=== PATIENT | female | born 1960 | race Caucasian/White ===

== ENCOUNTER 2022-02-09 15:10 | Outpatient (CLI) | payer MEDICARE, MEDICAID, SELFPAY ==
[2022-02-09 16:41] LABS: Absolute Lymphocyte Count 1.47 X10^3/uL (0.83-4.51); Absolute Neutrophil Count 2.5 X10^3/uL (2.0-7.7); Basophil# 0.04 X10^3/uL; Basophil% 0.9 % (0-1); Eosinophil# 0.11 X10^3/uL; Eosinophils% 2.4 % (0-5); Hematocrit 39.4 % (37-47); Hemoglobin 12.3 g/dL (12.0-15.0); Lymphocyte # 1.47 X10^3/ul (0.83-4.51); Mean Corp Hgb Conc 31.2 g/dL (32-36); Mean Corpuscular Hgb 24.8 pg (27.0-32.0); Mean Corpuscular Volume 79.6 fL (81-99); Mean Platelet Vol. 11.6 fl (6.2-12.0); Monocyte# 0.46 X10^3/uL; NRBC Flagged by Analyzer 0 % (0-5); Neutrophil # 2.51 X10^3/uL (2.7-7.7); Neutrophil % 54.5 % (47-70); Platelet Count 233 K/mm3 (150-450); RBC Distribution Width CV 16.6 % (11.6-14.6); RBC Distribution Width SD 47.6 fl (35.1-43.9); Red Blood Count 4.95 M/mm3 (4.2-5.4); White Blood Count 4.6 K/mm3 (4.4-11.0)
[2022-02-09 16:57] LABS: AST(SGOT) 20 U/L (15-37); Alanine Aminotransfer ALT/SGPT 36 U/L (13-56); Albumin, Serum 3.8 g/dL (3.2-5.0); Alkaline Phosphatase 96 U/L (45-117); Anion Gap 6 (5-15); BUN 21 mg/dL (7-18); BUN/Creat Ratio 22.5 RATIO (10-20); Calcium,Total 9.7 mg/dL (8.5-10.1); Chloride 104 mmol/L (98-107); Cholesterol 266 mg/dL (200); Creatinine, Serum 0.93 mg/dL (0.55-1.02); EST Glomerular Filtration Rate 65 mL/min (>60); Est Glom Filt Rate - Afr Amer 79 mL/min (>60); Globulin 3.7 g/dL (2.2-4.2); Glucose 96 mg/dL (74-106); High Density Lipoprotein 50 mg/dL; Potassium 3.7 mmol/L (3.5-5.1); Protein, Total 7.5 g/dL (6.4-8.2); Sodium Level 139 mmol/L (136-145); Triglycerides 212 mg/dL; Very Low Density Lipoprotein 42 mg/dL (5-40)
== END 2022-02-09 23:59 | disposition home or self-care (01) ==
LOC: BIMLAB 15:13
PROVIDERS: PCP Internal Medicine; Referring Provider Internal Medicine; Visit Provider Internal Medicine
DX: I10 Essential (primary) hypertension (principal); F41.9 Anxiety disorder, unspecified; F32.A Depression, unspecified
CPT/HCPCS: 36415; 80053; 80061; 84443; 85025

== ENCOUNTER 2023-02-14 10:16 | Outpatient (RCR) | payer MEDICARE, MEDICAID, SELFPAY ==
[2023-02-14 10:36] VITALS: BP 151/102; PULSE 101; TEMP 35.8; BMI 37.4
--- NOTE | 2023-02-14 12:23 | PCM.WC.HP ---
History of Present Illness Date of Service: 02/14/23 Chief Complaint: Nonhealing ulceration left lateral leg History of Wound: Patient is a 62-year-old female with PMHx of IBS, hypothyroidism, chronic back pain secondary to DJD, and nonhealing ulceration to the left lateral lower extremity. She states that the wound occurred after falling and bumping a heater. States that the wound did decrease in size but then increased significantly. She does admit to following in the wound care center in [place] with the [facility] where she underwent debridement and was placed into compression stockings which she does not wear consistently. She admits to the wound waxing and waning in size but recently has become more hypertrophic. Treating physician Dung Kumar MD felt with lack of progress over the 1 year duration of treatment that she likely has pyoderma gangrenosum. She was started on oral steroid therapy at 20 mg daily. This was increased to 40 mg daily then ultimately 60 mg daily. She states that she finished treatment and was supposed to continue with the oral steroid however she did not take it and has not taken any in 2 months. She also at that time was noticed to have some redness about the ulcerative site and the leg and was started on clindamycin 300 mg to treat associated cellulitis. She reports she is started the medication 2 days ago. She was prescribed Santyl for debridement and continues to use this, however is likely not using enough as she is generous with application due to cost. She presents to the wound care center here today due to lack of progress. [facility] Medical History (Updated 02/14/23 @ 13:[address] Leo Tai, DPRene) Anxiety and depression Broken leg Chronic respiratory failure Debility Degenerative disc disease Depression Empyema Endometriosis Gout High cholesterol Hx of blood clots Hypertension Hypothyroidism Migraine Pneumonia due to COVID-19 virus Pulmonary embolism Recurrent pulmonary embolism Shingles Home Medications acetaminophen 500 mg tablet (Tylenol Extra Strength) 500 mg PO Q6H PRN 10/31/21 [History Last Taken Unknown] TENS unit and electrodes combo pack #1 ea 01/23/22 [Rx Last Taken Unknown] apixaban 5 mg tablet (Eliquis) 5 mg PO BID #60 tabs 01/23/22 [Rx Last Taken Unknown] fluticasone propionate 50 mcg/actuation nasal spray,suspension (Flonase Allergy Relief) 1 spray intranasal DAILY #16 grams 01/23/22 [Rx Last Taken Unknown] handicap placard See Rx Instructions .Route .COMPLEX #1 unit 01/23/22 [Rx Last Taken Unknown] omeprazole 40 mg capsule,delayed release 40 mg PO DAILY #90 caps 08/03/22 [Rx Last Taken Unknown] bupropion HCl 300 mg 24 hr tablet, extended release 300 mg PO QAM #90 tabs 09/13/22 [Rx Last Taken Unknown] atenolol 50 mg tablet 50 mg PO DAILY #90 tabs 10/26/22 [Rx Last Taken Unknown] fluoxetine 40 mg capsule (Prozac) 40 mg PO DAILY #90 caps 10/26/22 [Rx Last Taken Unknown] levothyroxine 200 mcg tablet 200 mcg PO DAILY #90 tabs 10/26/22 [Rx Last Taken Unknown] triamterene 75 mg-hydrochlorothiazide 50 mg tablet 1 tab PO DAILY #90 tabs 10/26/22 [Rx Last Taken Unknown] albuterol sulfate 90 mcg/actuation aerosol inhaler (ProAir HFA) 2 puff inhalation Q6H PRN shortness of breath or wheezing #8.5 grams 01/23/23 [Rx Last Taken Unknown] cyclobenzaprine 10 mg tablet See Rx Instructions .Route .COMPLEX #30 tabs 01/23/23 [Rx Last Taken Unknown] furosemide 20 mg tablet (Lasix) 20 mg PO DAILY #30 tabs 01/23/23 [Rx Last Taken Unknown] simvastatin 40 mg tablet 40 mg PO DAILY #90 tabs 01/23/23 [Rx Last Taken Unknown] gabapentin 400 mg capsule 400 mg PO TID #90 caps 01/29/23 [Rx Last Taken Unknown] Allergy/AdvReac Type Severity Reaction Status Date / Time cephalexin [From Keflex] Allergy Mild swelling Verified 02/09/22 14:33 diclofenac Allergy Mild cough Verified 02/09/22 14:33 Tetracyclines Allergy Mild vomiting Verified 02/09/22 14:33 meloxicam Allergy Other Verified 02/14/23 10:34 lisinopril AdvReac Other Verified 02/14/23 10:32 Family History (Updated 10/31/21 @ 16:27 by Maliha Feliz) Mother Hypertension Diabetes Asthma Father CVA (cerebral vascular accident) Diabetes Heart disease Surgical History (Updated 10/31/21 @ 16:24 by Maliha Feliz) H/O laparoscopy History of lung surgery Social History Smoking Status: Former smoker quit date: 11/18/09 alcohol intake: current alcohol intake frequency: holidays/special occasions only substance use type: does not use what type of physical activity do you participate in: none do you feel safe at home: Yes ROS Constitutional Constitutional: Denies chills, fatigue or fever(s) Eyes Eyes: Denies blurry vision, change in vision or double vision ENT HEENT: Denies nasal congestion, nasal discharge or sore throat Cardiovascular Cardiovascular: Denies chest pain, claudication or palpitations Respiratory/Chest Respiratory/Chest: Denies cough or shortness of breath at rest Gastrointestinal Gastrointestinal: Denies abdominal pain, constipation, diarrhea, nausea or vomiting Genitourinary Genitourinary: Denies dysuria, urinary frequency, urinary hesitancy, urinary incontinence or urinary urgency Musculoskeletal Musculoskeletal: Reports back pain and extremity pain; Denies joint pain, joint stiffness or joint swelling Integumentary Integumentary: Denies pruritus or rash Psychiatric Psychiatric: Reports anxiety and depression Endocrine Endocrinology: Denies polydipsia or polyuria Hematologic/Lymphatic Hematologic/Lymphatic: Denies easy bleeding or easy bruising Vital Signs Vital Signs Vital Signs: 02/14/23 10:36 Temperature 96.5 F L Temperature Source Temporal Pulse Rate 101 H Blood Pressure 151/102 H Blood Pressure Mean 118 Blood Pressure Source Monitor Weight Weight: 102.058 kg Body Mass Index (BMI) 37.4 Physical Exam Const alert, no apparent distress and well nourished General Appearance: cooperative HEENT normocephalic Eyes General Eye: normal appearance of both eyes Neck General: normal visual inspection Lymph Lymphatic: no lymphadenopathy noted and no lymphedema noted Resp normal respiratory effort Cardio regular rate and regular rhythm Extremity normal capillary refill and no calf tenderness Extremity Narrative: DP and PT pulses palpable with adequate capillary fill time to the digits. Normal temperature gradient. Dermatologic: Localized cellulitis about the ulcerative rim extending to the anterior tibia Musculoskeletal: Decreased range of motion of the ankle joint noted in dorsiflexion with the knee extended without pain or crepitus. Decreased first MTPJ range of motion without pain or crepitus. Muscle strength is 5 of 5 and age-appropriate. Pain to palpation of the lower extremity secondary to ulceration and cellulitis. Skin no rashes or lesions noted, skin turgor normal and no jaundice Wound Narrative: Ulceration to the anterior lateral left lower extremity with mixed hypergranular tissue and yellow fibrotic tissue throughout the wound bed with irregular margins. There is some localized cellulitis of the Left lower extremity. No purulent drainage, no malodor, no palpable fluctuance/bogginess noted, no visible abscess formation, no lymphangitic streaking. Neuro moves all extremities Debridement Note Debridement Note No debridement was completed: No debridement was completed today Post-Debridement Measurements and Additional Note: Post-Debridement Measurements/Treatment - Nurse 1 - General Ulcer Assessment Start: 02/14/23 10:31 Freq: Status: Active Protocol: BRITTANI Activity Type Activity Date Activity User E-sign Co-sign Detail Recorded Client Recorded Date Recorded By Document 02/14/23 10:36 JOON [id number] 02/14/23 10:42 JOON 02/14/23 10:36 - Today's Visit Information Type of service Initial Visit Arrival Mode Ambulatory Patient Identification Verified (Name & Yes ) Patient Requires Transmission-Based No Precautions Height and Weight Height 5 ft 5 in Weight 102.058 kg Weight in Pounds 225.0 lbs Body Mass Index (BMI) 37.4 BMI Classification Obese BSA - Jake 2.08 Vital Signs Temperature (97.8 F-99.1 F) 96.5 F L Temperature Source Temporal Pulse Rate (60-100) 101 H Pulse Location Monitor Blood Pressure (90/60-120/80) 151/102 H Blood Pressure Mean 118 Source Monitor History Since Last Visit- (Skip if this is Patient's initial visit) Left Footwear Regular Shoe Right Footwear Regular Shoe Pain Scale: 0-10 Numeric Is Patient Pain Free? Yes - Nurse 1 - General Ulcer Measurement Start: 02/14/23 10:31 Freq: Status: Active Protocol: Activity Type Activity Date Activity User E-sign Co-sign Detail Recorded Client Recorded Date Recorded By Document 02/14/23 10:36 JOON [id number] 02/14/23 10:42 JOON 02/14/23 10:36 Wound Center Nurse 1 1-left lateral leg -Current Size (cm) - Length 5.6 -Current Size (cm) - Width 3.8 -Current Size (cm) - Depth 0.1 -Total Square Cm 21.28 -Photo Taken Yes -Epithelialization Medium 34-66% -Tunneling No -Undermining/Tunneling No -Circular Undermining No -Classification - Thickness Full Thickness without Exposed Support Structure -Wound Margin Flat & Intact -Granulation Amt Large (67-100%) -Granulation Quality Red -Slough/Fibrin Yes -Necrosis Amt Small (1-33%) -Necrotic Tissue Type Adherent Slough -Structure Exposed N/A -Texture (Carolann-wound Skin Appearance) Assessed, Localized Edema -Moisture (Carolann-wound Skin Appearance) Assessed,Dry/ Scaly -Color (Carolann-wound Skin Appearance) Assessed -Temperature (Carolann-wound Skin No Abnormality Appearance) (Pt Warm) -Tenderness on Palpation (Carolann-wound No Skin Appearance) -Ulcer Cleansing Wound Cleanser -Foul Odor after Cleansing No -Anesthetic Used 5% Lidocaine Gel Lower Limb Edema Present Yes Right Calf (cm) 39.8 Right Ankle (cm) 23.6 Left Calf (cm) 42.6 Left Ankle (cm) 26.0 Assessment/Plan Assessment/Plan (1) Debility: CODE(S): R53.81 - Other malaise (2) Hypertension: CODE(S): I10 - Essential (primary) hypertension QUALIFIERS: Hypertension type: primary hypertension Qualified Code(s): I10 - Essential (primary) hypertension (3) Hypothyroidism: CODE(S): E03.9 - Hypothyroidism, unspecified (4) Non-pressure chronic ulcer of left calf with fat layer exposed: CODE(S): L97.222 - Non-pressure chronic ulcer of left calf with fat layer exposed (5) Pyoderma gangrenosum: CODE(S): L88 - Pyoderma gangrenosum (6) Venous insufficiency (chronic) (peripheral): CODE(S): I87.2 - Venous insufficiency (chronic) (peripheral) PLAN: Plan Patient seen and evaluated I reviewed her current case and medical history from [facility] with the wound care center. She had undergone treatment for nonhealing ulceration for the duration of a year with minimal progress. Recently diagnosed with pyoderma gangrenosum and placed on oral steroids. Does have history of IBS. She was started 20 mg daily and titrated up to 60 mg daily. She did complete this course however has not taken any recent steroids despite being instructed to continue the treatment. She has been applying Santyl daily to the wound site but has been using a very minimal amount. She has not been consistent with wearing compression stockings. I encouraged continued compression stockings daily. Instructed on proper use of Santyl with wet-to-dry dressing daily. I discussed that this will provide nontraumatic ulcer debriding. I advised against debridement today due to pyoderma gangrenosum and likely worsening of her condition. Instructed her to resume steroid treatment at 20 mg daily until she establishes with dermatology for continued management of her pyoderma gangrenosum of the left lower extremity. Dry sterile dressing was applied today. Tubigrip compression applied today. She was instructed to continue to elevate legs at all times of rest to aid in edema control. Discussed referral to dermatology for continued care of this lower extremity ulceration complicated by pyoderma gangrenosum. She may return to the wound care center as needed. She may call with any questions or concerns or return sooner should any problems arise.
== END 2023-02-15 23:59 | disposition home or self-care (01) ==
LOC: WC 10:16
PROVIDERS: PCP Internal Medicine; Visit Provider Student in an Organized Health Care Education/Training Program
DX: I87.2 Venous insufficiency (chronic) (peripheral) (principal); L97.222 Non-pressure chronic ulcer of left calf with fat layer exposed; M19.90 Unspecified osteoarthritis, unspecified site; E78.00 Pure hypercholesterolemia, unspecified; G89.29 Other chronic pain; Z87.891 Personal history of nicotine dependence; I10 Essential (primary) hypertension; E03.9 Hypothyroidism, unspecified; Z86.16 Personal history of COVID-19; Z79.899 Other long term (current) drug therapy; Z79.01 Long term (current) use of anticoagulants; Z79.890 Hormone replacement therapy; Z86.718 Personal history of other venous thrombosis and embolism; L88 Pyoderma gangrenosum
CPT/HCPCS: 99213; G0463

== ENCOUNTER → 2023-02-22 | Outpatient (CLI) | payer MEDICARE, MEDICAID, SELFPAY ==
[2023-02-22 12:56] LABS: Hemoglobin 13.1 g/dL (12.0-15.0); Mean Corp Hgb Conc 31.2 g/dL (32-36); Mean Corpuscular Hgb 27.3 pg (27.0-32.0); Mean Corpuscular Volume 87.5 fL (81-99); Mean Platelet Vol. 12.1 fl (6.2-12.0); Platelet Count 263 K/mm3 (150-450); RBC Distribution Width SD 48.1 fl (35.1-43.9); White Blood Count 5.4 K/mm3 (4.4-11.0)
[2023-02-22 13:07] LABS: Anion Gap 5 (5-15); BUN 21 mg/dL (7-18); BUN/Creat Ratio 22.7 RATIO (10-20); Calcium,Total 9.7 mg/dL (8.5-10.1); Chloride 104 mmol/L (98-107); Cholesterol 216 mg/dL (200); Creatinine, Serum 0.92 mg/dL (0.55-1.02); EST Glomerular Filtration Rate 66 mL/min (>60); Est Glom Filt Rate - Afr Amer 79 mL/min (>60); Glucose 100 mg/dL (74-106); High Density Lipoprotein 53 mg/dL; Sodium Level 138 mmol/L (136-145); Triglycerides 198 mg/dL; Very Low Density Lipoprotein 40 mg/dL (5-40)
== END | disposition home or self-care (01) ==
LOC: BIMLAB 10:51
PROVIDERS: PCP Internal Medicine; Referring Provider Nurse Practitioner Family; Visit Provider Nurse Practitioner Family
DX: I10 Essential (primary) hypertension (principal); I26.99 Other pulmonary embolism without acute cor pulmonale; E03.9 Hypothyroidism, unspecified
CPT/HCPCS: 36415; 80048; 80061; 84443; 85027